=== PATIENT | male | born 1960 | race Caucasian/White ===

== ENCOUNTER 2020-08-26 15:58 | Emergency (ER) | payer SELFPAY ==
[~2020-08-26] VITALS: Ht 172.7 cm; Wt 65.8 kg
[2020-08-26 16:03] VITALS: BP 145/78
== END 2020-08-26 18:00 | disposition home or self-care (01) ==
LOC: EDBD 16:01 → ER 16:01
DX: Z75.3 Unavailability and inaccessibility of health-care facilities (principal)